=== PATIENT | female | born 1990 | race Caucasian/White ===

== ENCOUNTER 2016-09-25 11:46 | Emergency (ER) | payer OTHER | END 2016-09-25 16:18 | disposition home or self-care (01) | DX: F41.9 Anxiety disorder, unspecified (principal); F32.9 Major depressive disorder, single episode, unspecified ==

== ENCOUNTER 2017-02-01 23:05 | Emergency (ER) | payer OTHER ==
[2017-02-01] MEDS ORDERED: SODIUM CHLORIDE 0.9% 1,000 ML IV ONE (23:39)
[2017-02-02 00:07] LABS: BASOPHILS # (AUTO) 0.1 10^3/uL (0.0-0.1); BASOPHILS % (AUTO) 0.8 %; EOSINOPHILS # (AUTO) 0.1 10^3/uL (0.0-0.7); EOSINOPHILS % (AUTO) 0.7 %; HCT - HEMATOCRIT 35.6 % (37.0-47.0); HGB - HEMOGLOBIN 12.4 g/dL (12.0-16.0); LYMPHOCYTES # (AUTO) 2.9 10^3/uL (1.5-3.5); LYMPHOCYTES % (AUTO) 22.1 %; MEAN CORPUSCULAR HEMOGLOBIN 30.4 pg (27.0-31.0); MEAN CORPUSCULAR HGB CONC 34.8 g/dL (32.0-36.0); MEAN CORPUSCULAR VOLUME 87.1 fL (81.0-99.0); MONOCYTES # (AUTO) 0.9 10^3/uL (0.0-1.0); MONOCYTES % (AUTO) 6.9 %; NEUTROPHILS # (AUTO) 9.3 10^3/uL (1.5-6.6); NEUTROPHILS % (AUTO) 69.5 %; RED BLOOD COUNT 4.08 10^6/uL (4.20-5.40); UNCORRECTED WHITE BLOOD COUNT 13.4 x10^3/uL; WHITE BLOOD COUNT 13.4 x10^3/uL (4.8-10.8)
[2017-02-02 00:19] LABS: ALBUMIN/GLOBULIN RATIO 0.9 (1.0-2.2); BILIRUBIN,TOTAL 0.3 mg/dL (0.2-1.0); CALCIUM 9.1 mg/dL (8.5-10.3); CREATININE 0.8 mg/dL (0.4-1.0); POTASSIUM 3.7 mmol/L (3.5-5.0); TOTAL PROTEIN 6.9 g/dL (6.7-8.2)
[2017-02-02 00:23] LABS: BILIRUBIN,URINE NEGATIVE (NEGATIVE)
[2017-02-02 00:33] LABS: UA w/ MICROSCOPIC CHARGE YES
[2017-02-02 00:45] LABS: UR CULTURE IF IND NOT INDICATED
--- NOTE | 2017-02-02 01:56 | Ultrasound Preliminary Report ---
Exam: US OB 14+ Weeks IMPRESSION: 1. Single live intrauterine gestation measuring 14 weeks 5 days with MICHELE of 07/29/2017. 2. Low-lying placenta. Attention on follow-up examination recommended. No evidence of abruption or pr evia. 3. Detailed anatomic assessment is not performed at this time. Follow-up anatomic ultraso und examination recommended at 2022 weeks gestation. [facility] SITE ID: [id number]
--- NOTE | 2017-02-02 01:59 | Ultrasound Report ---
EXAM: OBSTETRIC ULTRASOUND EXAM DATE: 02/02/2017 12:42 AM. CLINICAL HISTORY: 15 week , vaginal bleeding. COMPARISON: None. TECHNIQUE: Real-time scanning performed with static images. Both color-flow and Doppler technology were utilized . FINDINGS: LMP: 10/25/2016. Estimated gestational age: 14 weeks 2 days. Estimated due date: 08/01/2017. Fetus: Single live intrauterine gestation. Presentation: Cephalic. Heart Rate: 159 BPM. Placenta: Posterior position. Low-lying placenta. No previa or abruption. Amniotic Fluid: Subjectively normal. Biometry: Bi-parietal diameter (BPD): 2.88 cm = 15 weeks 1 days. Head circumference (HC): 10.84 cm = 15 weeks 1 days. Abdominal circumference (AC): 7.92 cm = 14 weeks 2 days. Femur length (FL): 1.37 cm = 14 weeks 0 days. Dates: Composite gestational age (this exam): 14 Weeks 5 days (EDC 07/29/2017). Estimated weight: 94 gm, 35th percentile. Maternal Structures: Left ovary is normal measuring 3.4 x 3.2 x 2.9 cm. Small corpus luteum cyst measuring 19 mm. Normal b lood flow. Right ovary is normal measuring 3.0 x 1.9 x 1.8 cm. There is no significant free fluid. Cervix is long and closed measuring 3.5 cm. IMPRESSION: 1. Single live intrauterine gestation measuring 14 weeks 5 days with MICHELE of 07/29/2017. 2. Low-lying placenta. Attention on follow-up examination recommended. No evidence of abruption or pr evia. 3. Detailed anatomic assessment is not performed at this time. Follow-up anatomic ultraso und examination recommended at 2022 weeks gestation. [facility] Referring Provider Line: [phone] SITE ID: [id number]
[2017-02-02] MEDS ORDERED: RHO(D) IMMUNE GLOBULIN 300 MCG SYRINGE IM ONE (02:38)
--- NOTE | 2017-02-02 03:51 | ED Physician Documentation ---
PD HPI ABD PAIN - Stated complaint Stated Complaint: FEMALE /14 WKS PREG - Chief complaint Chief Complaint: Abd Pain - Additional information Additional information: This patient is a 26-year-old female who is 6 para 1 AB 4 currently at approximately 15 weeks by ultrasound. She is here with a complaint of small amount of vaginal bleeding. She has had spotting every days of her although her bleeding increased tonight. There is no history of recent intercourse. She has had a complicated with preeclampsia necessitatingInduction at 32 weeks. She denies any chest pain, shortness of breath, nausea, vomiting constipation diarrhea or lower urinary symptoms. She does have a history of gestational diabetes as well. Review of systems: For pertinent positive and negatives in the review of systems please see history of present illness. Otherwise all other systems have been reviewed and are negative. Dragon disclaimer: Parts of this medical record were created using voice recognition technology. Because of the inherent limitations of this system occasional same sounding word substitutions do occur and persist despite proofreading. Please read the document for context. 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 - Present Medications Home Medications: Ambulatory Orders Medication Instructions Recorded Confirmed Buspirone HCl 10 mg PO BID 09/25/16 02/01/17 - Allergies Allergies/Adverse Reactions: Allergies Allergy/AdvReac Type Severity Reaction Status Date / Time azithromycin Allergy Unknown Verified 09/25/16 11:57 - Social History Does the pt smoke?: No Smoking Status: Never smoker Does the pt drink ETOH?: No Does the pt have substance abuse?: No PD ED PE NORMAL - General General: Alert and oriented X 3, No acute distress - HEENT HEENT: Atraumatic, PERRL, EOMI - Neck Neck: No bony TTP - Cardiac Cardiac: RRR, No murmur, No gallop, No rub - Respiratory Respiratory: No respiratory distress, Clear bilaterally - Abdomen Abdomen: Normal bowel sounds, Soft, Non tender, Non distended - Female Female : Deferred - Back Back: No CVA TTP - Derm Derm: Normal color, Warm and dry - Extremities Extremities: No deformity, No tenderness to palpate, Normal ROM s pain - Neuro Neuro: Alert and oriented X 3 Results - Vitals Vitals: Vital Signs - 24 hr 02/01/17 02/02/17 23:14 02:50 Temperature 36.6 C Heart Rate 91 88 Respiratory 18 16 Rate Blood Pressure 136/73 H 123/56 L O2 Saturation 98 98 Oxygen O2 Source Room air - Labs Labs: Laboratory Tests 02/01/17 02/01/17 02/01/17 23:58 23:58 23:58 WBC 13.4 H RBC 4.08 L Hgb 12.4 Hct 35.6 L MCV 87.1 MCH 30.4 MCHC 34.8 RDW 13.0 Plt Count 266 MPV 9.0 Neut # 9.3 H Lymph # 2.9 Centre # 0.9 Eos # 0.1 Baso # 0.1 Absolute Nucleated RBC 0.01 Nucleated RBCs 0.0 Sodium 135 Potassium 3.7 Chloride 102 Carbon Dioxide 24 Anion Gap 9.0 BUN 11 Creatinine 0.8 Estimated GFR (MDRD) 87 L Glucose 93 Calcium 9.1 Total Bilirubin 0.3 AST 18 ALT 15 Alkaline Phosphatase 68 Total Protein 6.9 Albumin 3.2 Globulin 3.7 Albumin/Globulin Ratio 0.9 L Lipase 24 HCG, Quant 39988.00 Urine Color Urine Clarity Urine pH Ur Specific [place] Urine Protein Urine Glucose (UA) Urine Ketones Urine Occult Blood Urine Nitrite Urine Bilirubin Urine Urobilinogen Ur Leukocyte Esterase Urine RBC Urine WBC Ur Squamous Epith Cells Urine Bacteria Ur Microscopic Review Urine Culture Comments Blood Type 02/01/17 02/02/17 23:58 00:12 WBC RBC Hgb Hct MCV MCH MCHC RDW Plt Count MPV Neut # Lymph # Centre # Eos # Baso # Absolute Nucleated RBC Nucleated RBCs Sodium Potassium Chloride Carbon Dioxide Anion Gap BUN Creatinine Estimated GFR (MDRD) Glucose Calcium Total Bilirubin AST ALT Alkaline Phosphatase Total Protein Albumin Globulin Albumin/Globulin Ratio Lipase HCG, Quant Urine Color YELLOW Urine Clarity CLEAR Urine pH 6.0 Ur Specific [place] >=1.030 H Urine Protein 30 H Urine Glucose (UA) NEGATIVE Urine Ketones NEGATIVE Urine Occult Blood SMALL H Urine Nitrite NEGATIVE Urine Bilirubin NEGATIVE Urine Urobilinogen 0.2 (NORMAL) Ur Leukocyte Esterase NEGATIVE Urine RBC 6-10 H Urine WBC 4-5 Ur Squamous Epith Cells FEW Squamous Urine Bacteria None Seen Ur Microscopic Review INDICATED Urine Culture Comments NOT INDICATED Blood Type A NEGATIVE PD MEDICAL DECISION MAKING - ED course Complexity details: reviewed results, re-evaluated patient ED course: Patient is a 26-year-old female who presents with interval increase in her vaginal bleeding from her baseline spotting every day. She has no other complaints or concerns. This patient does have a history of preeclampsia in previous pregnancies as well as gestational diabetes. On examination she is a well-appearing female no apparent distress. Her abdomen is palpated is nontender at the fundal height is appropriate for dates. An IV line was started she is given 1 L of normal saline. Blood work shows white count of 13, 000 however there is no evidence of infection clinically or by urinalysis. Patient's electrolytes are normal here and is maximally concentrated and shows proteinuria however there is no spilling any glucose. Ultrasound demonstrates a single live intrauterine that is doing well. The placenta is noted to be a little low-lying. The patient's Rh was negative. She is given RhoGam. Patient is doing well clinically. I discussed the results of her testing with her. At this point in time she will be discharged home with [place] [place]position: To home Clinical impression: 1. Second trimester bleeding-mild 2. Rh- given RhoGam 3. History of preeclampsia in the past as well as gestational diabetes currently stable Departure - Departure Disposition: 01 Home, Self Care Clinical Impression: Threatened in second trimester Condition: Good Instructions: ED Miscarriage Poss Follow-Up: your, physician [Other]
[2017-02-02 04:06] VITALS: BP 124/60
== END 2017-02-02 04:02 | disposition home or self-care (01) ==
LOC: ED 23:05
DX: O20.0 Threatened abortion (principal); Z3A.14 14 weeks gestation of pregnancy; Z86.32 Personal history of gestational diabetes
CPT/HCPCS: 36415; 76805; 80053; 81001; 81003; 83690; 84702; 85025; 86900; 86901; 87086; 96372; 99283; 99284

== ENCOUNTER 2017-10-07 17:23 | Emergency (ER) | payer OTHER ==
[2017-10-07] MEDS ORDERED: ONDANSETRON ODT 4 MG TABLET TL STA (17:49)
[2017-10-07] MEDS ORDERED: HYDROcod/ACETAM 5/325 MG TABLET PO STA (17:49)
--- NOTE | 2017-10-07 17:53 | ED Physician Documentation ---
PD HPI ABD PAIN - Stated complaint Stated Complaint: FEMALE - Chief complaint Chief Complaint: Abd Pain - History obtained from History obtained from: Patient - History of Present Illness Timing - onset: Other (27-year-old woman who is 4 months status post for preeclampsia. For the last 2 months she has had right flank pain pretty much constantly but worse over the last 2 days. It is associated with urinary frequency and some dysuria as well. She is not breast-feeding. She also describes nausea and diarrhea for that whole time course. She does have a history of IBS. She also notes ringworm on the left antecubital fossa. She saw her doctor for this and they did lab work but she does not know the results and it sounds like there was some missed appointments or at least some problems getting to her appointments or some canceled appointments.) Review of Systems Constitutional: denies: Fever, Chills Cardiac: denies: Chest pain / pressure, Palpitations Respiratory: denies: Dyspnea, Cough GI: reports: Nausea, Diarrhea. 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 10/07/17 Dicyclomine HCl 20 mg PO QID PRN #20 tablet 10/07/17 HYDROcod/ACETAM 5/325 [[place] 5/325] 1 - 2 ea PO Q6H PRN #10 tablet 10/07/17 Ondansetron HCl [Zofran] 4 mg PO Q6H PRN #10 tablet 10/07/17 - Allergies Allergies/Adverse Reactions: Allergies Allergy/AdvReac Type Severity Reaction Status Date / Time azithromycin Allergy Unknown Verified 10/07/17 17:33 - Social History Does the pt smoke?: No Smoking Status: Never smoker Does the pt drink ETOH?: No Does the pt have substance abuse?: No PD ED PE NORMAL - Vitals Vital signs reviewed: Yes - General General: Alert and oriented X 3, No acute distress - HEENT HEENT: PERRL, EOMI - Neck Neck: Supple, no meningeal sign, No bony TTP - Abdomen Abdomen: Normal bowel sounds, Soft, Other (Mild bilateral lower quadrant tenderness and some right flank tenderness, no surgical signs.) - Derm Derm: Other (There is a very small area of ringworm in the left antecubital fossa) - Neuro Neuro: Alert and oriented X 3, Normal speech Results - Vitals Vitals: Vital Signs - 24 hr 10/07/17 10/07/17 17:26 19:30 Temperature 36.0 C L Heart Rate 85 78 Respiratory 18 17 Rate Blood Pressure 143/92 H 145/86 H O2 Saturation 99 98 Oxygen O2 Source Room air - Labs Labs: Laboratory Tests 10/07/17 10/07/17 10/07/17 18:00 18:01 18:01 WBC 12.2 H RBC 4.71 Hgb 13.5 Hct 40.9 MCV 86.8 MCH 28.7 MCHC 33.1 RDW 14.1 Plt Count 322 MPV 9.0 Neut # 8.2 H Lymph # 3.0 [place] # 0.7 Eos # 0.1 Baso # 0.2 H Absolute Nucleated RBC 0.00 Nucleated RBC % 0.0 Sodium 135 Potassium 3.6 Chloride 103 Carbon Dioxide 22 Anion Gap 10.0 BUN 11 Creatinine 1.0 Estimated GFR (MDRD) 67 L Glucose 100 Calcium 9.0 Total Bilirubin 0.3 AST 29 ALT 31 Alkaline Phosphatase 69 Total Protein 7.9 Albumin 4.0 Globulin 3.9 Albumin/Globulin Ratio 1.0 Lipase 19 L Urine Color YELLOW Urine Clarity HAZY Urine pH 5.5 Ur Specific [place] >=1.030 H Urine Protein 30 H Urine Glucose (UA) NEGATIVE Urine Ketones NEGATIVE Urine Occult Blood NEGATIVE Urine Nitrite NEGATIVE Urine Bilirubin NEGATIVE Urine Urobilinogen 0.2 (NORMAL) Ur Leukocyte Esterase NEGATIVE Urine RBC None Seen Urine WBC 4-5 Ur Squamous Epith Cells MANY Squamous H Urine Bacteria Moderate H Ur Microscopic Review INDICATED Urine Culture Comments NOT INDICATED Urine HCG, Qual NEGATIVE - Rads (name of study) Pelvic sono Radiology: EMP read contemporaneously (normal) PD MEDICAL DECISION MAKING - ED course ED course: 27-year-old woman with subacute abdominal pains, pelvic pains, nausea and diarrhea. Seems most consistent with IBS which she has been diagnosed with before. She had a sensation of abdominal swelling so pelvic ultrasound was done and negative, also negative for ascites. Other lab work was notable for a contaminated urine but without overt signs of UTI. Departure - Departure Disposition: 01 Home, Self Care Clinical Impression: Tinea corporis Abdominal pain Qualifiers: Abdominal location: lower abdomen, unspecified Qualified Code(s): R10.30 - Lower abdominal pain, unspecified Condition: Good Record reviewed to determine appropriate education?: Yes Instructions: Abdominal Pain Prescriptions: Clotrimazole [Clotrimazole AF] 1 gm TP TID 28 Days cream..g. Dicyclomine HCl 20 mg PO QID PRN #20 tablet PRN Reason: Abdominal Cramps HYDROcod/ACETAM 5/325 [[place] 5/325] 1 - 2 ea PO Q6H PRN #10 tablet PRN Reason: Pain Ondansetron HCl [Zofran] 4 mg PO Q6H PRN #10 tablet PRN Reason: Nausea / Vomiting Comments: Call your doctor to arrange a follow-up appointment, make the next available appointment. In the interim, return anytime if worse or if new symptoms develop. Your blood pressure was elevated today on check into the emergency department. This does not mean that you have hypertension, it is a common phenomenon to come to the emergency department and have elevated blood pressure. I recommend that you see your primary care physician within the week to have it rechecked when you are feeling better. Do not drink or drive while taking narcotic pain medication. Note that many narcotic pain relievers also contain Tylenol/acetaminophen. Please ensure that your total dose of acetaminophen from all sources does not exceed 3 g (3000 mg) per day. You may get constipated while on this medication. Take a stool softener such as Colace twice a day while you are on it. Also add an [id number] laxative such as senna or MiraLAX on any day that you do not have a bowel movement. If you received a narcotic pain medication or sedative while in the emergency department, do not drive for the next 24 hours.
[2017-10-07 18:08] LABS: BASOPHILS # (AUTO) 0.2 10^3/uL (0.0-0.1); BASOPHILS % (AUTO) 1.3 %; EOSINOPHILS # (AUTO) 0.1 10^3/uL (0.0-0.7); HGB - HEMOGLOBIN 13.5 g/dL (12.0-16.0); LYMPHOCYTES % (AUTO) 24.4 %; MEAN CORPUSCULAR HEMOGLOBIN 28.7 pg (27.0-31.0); MEAN CORPUSCULAR HGB CONC 33.1 g/dL (32.0-36.0); MEAN CORPUSCULAR VOLUME 86.8 fL (81.0-99.0); MONOCYTES # (AUTO) 0.7 10^3/uL (0.0-1.0); NEUTROPHILS # (AUTO) 8.2 10^3/uL (1.5-6.6); NEUTROPHILS % (AUTO) 67.3 %; PLT - PLATELET COUNT 322 10^3/uL (130-450); RED BLOOD COUNT 4.71 10^6/uL (4.20-5.40); RED CELL DISTRIBUTION WIDTH 14.1 % (12.0-15.0); WHITE BLOOD COUNT 12.2 x10^3/uL (4.8-10.8)
[2017-10-07 18:18] LABS: BILIRUBIN,TOTAL 0.3 mg/dL (0.2-1.0); TOTAL PROTEIN 7.9 g/dL (6.7-8.2)
[2017-10-07 18:37] LABS: BILIRUBIN,URINE NEGATIVE (NEGATIVE); GLUCOSE, URINE (UA) NEGATIVE (NEGATIVE); KETONES,URINE (UA) NEGATIVE (NEGATIVE); LEUKOCYTE ESTERASE, URINE NEGATIVE (NEGATIVE); NITRITE,URINE NEGATIVE (NEGATIVE); OCCULT BLOOD,URINE NEGATIVE (NEGATIVE); PH,URINE 5.5 PH (5.0-7.5); PROTEIN,URINE 30 mg/dL (NEGATIVE); UROBILINOGEN,URINE 0.2 (NORMAL) E.U./dL (NORMAL)
[2017-10-07 18:40] LABS: CLARITY,URINE HAZY (CLEAR); HCG UR QUAL NEGATIVE
[2017-10-07 18:50] LABS: BACTERIA,URINE Moderate /HPF (None Seen); RBC,URINE None Seen /HPF (0-5); SQUAMOUS EPITHELIAL CELL,UR MANY Squamous (<= Few)
--- NOTE | 2017-10-07 19:34 | Ultrasound Report ---
EXAM: PELVIC ULTRASOUND EXAM DATE: 10/07/2017 07:19 PM. CLINICAL HISTORY: Pelvic pain. COMPARISON: None. TECHNIQUE: Realtime transabdominal pelvic scan performed to identify the uterus and adnexa and as an overview of other pelvic structures, followed by transvaginal scan to provide greater detail of the u terus and adnexa, with static image documentation. FINDINGS: Uterus: A 0.9 x 4.7 x 6.3 cm, volume 138 cc. Anteverted position. Somewhat heterogeneous echotexture. Masses: None. Endometrium: 14 mm. Normal. Cervix: Unremarkable. Right Ovary: 3.2 x 2.3 x 2.6 cm, volume 10 cc. Normal echotexture and blood flow. Left Ovary: 3.2 x 2.3 x 2.2 cm, volume 8 cc. Normal echotexture and blood flow. Free Fluid: Small volume. Other: None. IMPRESSION: Negative pelvic ultrasound. [facility] Referring Provider Line: [phone] SITE ID: [id number]
[2017-10-07 19:58] VITALS: BP 149/99
== END 2017-10-07 19:57 | disposition home or self-care (01) ==
LOC: ED 17:23
DX: R10.30 Lower abdominal pain, unspecified (principal); B35.4 Tinea corporis; K58.9 Irritable bowel syndrome, unspecified; R03.0 Elevated blood-pressure reading, without diagnosis of hypertension; R11.0 Nausea
CPT/HCPCS: 36415; 76830; 76856; 80053; 81001; 81025; 83690; 85025; 93975; 99283; A9270; Q0162; 81003; 87086

== ENCOUNTER 2018-05-02 19:15 | Emergency (ER) | payer OTHER ==
--- NOTE | 2018-05-02 20:36 | ED Physician Documentation ---
PD HPI NVD - Stated complaint Stated Complaint: N/V - Chief complaint Chief Complaint: Abd Pain - History obtained from History obtained from: Patient - History of Present Illness Timing - onset: Yesterday Timing - details: Gradual onset, Constant, Waxing and waning Pain level now: 7 Associated symptoms: Abdominal pain. No: Fever Improved by: Laying still Worsened by: Moving Similar symptoms before: Has not had sx before Recently seen: Not recently seen - Additonal information Additional information: c/o nausea, vomiting since yesterday, developed diarrhea this morning. Also has abdominal pain, waxing and waning with constant baseline, diffuse. Patient was seen by PMD 2 days ago for recurrent pain across lower abdomen/pelvis for which she was prescribed Vicodin; patient says she has not been able to keep the vicodin down due to n/v, but can't even keep down any PO including sips of liquids. She says the pelvic pain is recurrent and this is why she is scheduled to have hysterectomy in 2 weeks. 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 10/07/17 Dicyclomine HCl 20 mg PO QID PRN #20 tablet 10/07/17 HYDROcod/ACETAM 5/325 [[place] 5/325] 1 - 2 ea PO Q6H PRN #10 tablet 10/07/17 Ondansetron HCl [Zofran] 4 mg PO Q6H PRN #10 tablet 10/07/17 Promethazine [Phenergan] 25 - 50 mg PO Q6H PRN #10 tab 05/02/18 oxyCODONE [Roxicodone] 5 - 10 mg PO Q6H PRN #14 tablet 05/02/18 - Allergies Allergies/Adverse Reactions: Allergies Allergy/AdvReac Type Severity Reaction Status Date / Time azithromycin Allergy Unknown Verified 05/02/18 19:23 - Social History Does the pt smoke?: No Smoking Status: Never smoker Does the pt drink ETOH?: No Does the pt have substance abuse?: No Substance Use and Type: Marijuana - Immunizations Immunizations are current?: Yes - POLST Patient has POLST: No PD ED PE NORMAL - Vitals Vital signs reviewed: Yes - General General: Alert and oriented X 3, Well developed/nourished, Other (appears uncomfortable) - HEENT HEENT: Other (tacky/pasty mucous membranes) - Neck Neck: Supple, no meningeal sign - Cardiac Cardiac: RRR, No murmur - Respiratory Respiratory: No respiratory distress, Clear bilaterally - Abdomen Abdomen: Soft, Non distended, Other (tender to palpation RLQ > LUQ with sparing of LLQ and RUQ) - Back Back: No CVA TTP - Derm Derm: Normal color, Warm and dry - Extremities Extremities: No edema Results - Vitals Vitals: Vital Signs - 24 hr 05/02/18 19:20 Temperature 36.6 C Heart Rate 93 Respiratory 17 Rate Blood Pressure 134/101 H O2 Saturation 97 Oxygen O2 Source Room air - Rads (name of study) CT A/P Radiology: Prelim report reviewed, See rad report PD MEDICAL DECISION MAKING - ED course Complexity details: reviewed results, re-evaluated patient, considered differential, d/w patient Departure - Departure Disposition: 01 Home, Self Care Clinical Impression: Vomiting Condition: Good Instructions: ED Abdominal Pain Unkn Cause, ED Nausea Vomiting Prescriptions: oxyCODONE [Roxicodone] 5 - 10 mg PO Q6H PRN #14 tablet PRN Reason: Pain Promethazine [Phenergan] 25 - 50 mg PO Q6H PRN #10 tab PRN Reason: Nausea / Vomiting Discharge Date/Time: 05/03/18 00:03
[2018-05-02] MEDS ORDERED: ONDANSETRON 4 MG/2 ML VIAL IVP STA ×2 (20:47→22:39)
[2018-05-02] MEDS ORDERED: SODIUM CHLORIDE 0.9% 1,000 ML IV STA ×2 (20:47→22:39)
[2018-05-02] MEDS ORDERED: KETOROLAC 60 MG/2 ML VIAL IVP STA (20:47)
[2018-05-02 21:11] LABS: GLUCOSE, URINE (UA) NEGATIVE (NEGATIVE); KETONES,URINE (UA) >=80 mg/dL (NEGATIVE); LEUKOCYTE ESTERASE, URINE NEGATIVE (NEGATIVE); NITRITE,URINE NEGATIVE (NEGATIVE); OCCULT BLOOD,URINE MODERATE (NEGATIVE); PROTEIN,URINE >=300 mg/dL (NEGATIVE); UROBILINOGEN,URINE 0.2 (NORMAL) E.U./dL (NORMAL)
[2018-05-02 21:15] LABS: BILIRUBIN,URINE NEGATIVE (NEGATIVE); CLARITY,URINE HAZY (CLEAR); ICTOTEST,URINE NEGATIVE
[2018-05-02 21:19] LABS: BASOPHILS # (AUTO) 0.1 10^3/uL (0.0-0.1); BASOPHILS % (AUTO) 0.8 %; EOSINOPHILS % (AUTO) 0.1 %; LYMPHOCYTES # (AUTO) 1.5 10^3/uL (1.5-3.5); MEAN CORPUSCULAR HEMOGLOBIN 29.5 pg (27.0-31.0); MEAN CORPUSCULAR HGB CONC 34.4 g/dL (32.0-36.0); MEAN CORPUSCULAR VOLUME 85.8 fL (81.0-99.0); MEAN PLATELET VOLUME 9.1 fL (7.9-10.8); MONOCYTES # (AUTO) 0.8 10^3/uL (0.0-1.0); MONOCYTES % (AUTO) 5.2 %; NEUTROPHILS # (AUTO) 13.8 10^3/uL (1.5-6.6); NEUTROPHILS % (AUTO) 84.9 %; PLT - PLATELET COUNT 367 10^3/uL (130-450); RED CELL DISTRIBUTION WIDTH 13.5 % (12.0-15.0); WHITE BLOOD COUNT 16.3 x10^3/uL (4.8-10.8)
[2018-05-02 21:25] LABS: BACTERIA,URINE Rare /HPF (None Seen); SQUAMOUS EPITHELIAL CELL,UR MANY Squamous (<= Few)
[2018-05-02 21:25] LABS: ALBUMIN 4.6 g/dL (3.2-5.5); ALBUMIN/GLOBULIN RATIO 1.1 (1.0-2.2); BILIRUBIN,TOTAL 0.9 mg/dL (0.2-1.0); CALCIUM 9.6 mg/dL (8.5-10.3); CREATININE 0.9 mg/dL (0.4-1.0); TOTAL PROTEIN 8.8 g/dL (6.7-8.2)
[2018-05-02 21:55] LABS: HCG UR QUAL NEGATIVE
[2018-05-02] MEDS ORDERED: IOPAMIDOL-300 100 ML VIAL ONE (22:02)
[2018-05-02] MEDS ORDERED: IOPAMIDOL-300 100 ML VIAL IVP ONE (22:18)
--- NOTE | 2018-05-02 22:47 | CT Report ---
Reason: RLQ tenderness Procedure Date: 05/02/2018 Accession Number: [id number] / [id number] Procedure: CT - Abdomen/Pelvis W/ CPT Code: FULL RESULT: EXAM: CT ABDOMEN AND PELVIS EXAM DATE: 05/02/2018 10:32 PM. CLINICAL HISTORY: RLQ tenderness. COMPARISONS: None. TECHNIQUE: Routine helical CT imaging was performed through the abdomen and pelvis. IV contrast: ISOVUE 300 100mL. Enteric contrast: No. Reconstructions: Coronal and sagittal. In accordance with CT protocol optimization, one or more of the following dose reduction techniques were utilized for this exam: automated exposure control, adjustment of mA and/or KV based on patient size, or use of iterative reconstructive technique. FINDINGS: Lung Bases: Unremarkable. Liver: Small focus of fatty infiltration adjacent to the falciform ligament. No intrahepatic biliary dilatation. Gallbladder/Bile Ducts: Changes of cholecystectomy. The common bile duct is not dilated. Spleen: Normal. Pancreas: Normal. Adrenal Glands: Normal. Kidneys: Lobulated cortex on the kidneys, suggestive of previous scarring. No hydronephrosis or nephrolithiasis. Peritoneal Cavity/Bowel: Normal. No free fluid, free air or adenopathy. No masses or acute inflammatory process. The appendix is well visualized and normal. Pelvic Organs: Normal. The bladder and visualized pelvic organs are within normal limits. Vasculature: No aneurysms or other significant abnormality. Bones: No significant abnormality. Other: None. IMPRESSION: No evident etiology for patient's pain. Lobular cortex to the kidneys, suggestive of previous scarring. No nephrolithiasis or hydronephrosis. Normal appendix. [facility]
[2018-05-02] MEDS ORDERED: PROMETHAZINE 25 MG TABLET PO STA (23:31)
[2018-05-02 23:57] VITALS: BP 133/94
== END 2018-05-03 00:03 | disposition home or self-care (01) ==
LOC: EDUNIT# → ED 19:15
DX: R11.10 Vomiting, unspecified (principal); R10.9 Unspecified abdominal pain
CPT/HCPCS: 36415; 74177; 80053; 81001; 81025; 83690; 85025; 96374; 96375; 96376; 99283; 99284; Q0169; Q9967; 81003; 87086

== ENCOUNTER 2018-05-12 11:01 | Outpatient (CLI) | payer OTHER ==
[2018-05-12 11:43] LABS: BASOPHILS # (AUTO) 0.1 10^3/uL (0.0-0.1); BASOPHILS % (AUTO) 1.2 %; EOSINOPHILS # (AUTO) 0.1 10^3/uL (0.0-0.7); EOSINOPHILS % (AUTO) 1.5 %; HGB - HEMOGLOBIN 14.6 g/dL (12.0-16.0); LYMPHOCYTES # (AUTO) 2.5 10^3/uL (1.5-3.5); LYMPHOCYTES % (AUTO) 32.4 %; MEAN CORPUSCULAR HEMOGLOBIN 30.1 pg (27.0-31.0); MEAN CORPUSCULAR HGB CONC 34.8 g/dL (32.0-36.0); MEAN CORPUSCULAR VOLUME 86.6 fL (81.0-99.0); MEAN PLATELET VOLUME 9.1 fL (7.9-10.8); MONOCYTES # (AUTO) 0.5 10^3/uL (0.0-1.0); MONOCYTES % (AUTO) 7.2 %; NEUTROPHILS # (AUTO) 4.4 10^3/uL (1.5-6.6); NEUTROPHILS % (AUTO) 57.7 %; PLT - PLATELET COUNT 297 10^3/uL (130-450); RED BLOOD COUNT 4.86 10^6/uL (4.20-5.40); RED CELL DISTRIBUTION WIDTH 13.5 % (12.0-15.0); WHITE BLOOD COUNT 7.6 x10^3/uL (4.8-10.8)
[2018-05-12 11:56] LABS: CALCIUM 9.1 mg/dL (8.5-10.3)
[2018-05-12 13:22] LABS: BILIRUBIN,URINE NEGATIVE (NEGATIVE); GLUCOSE, URINE (UA) NEGATIVE (NEGATIVE); KETONES,URINE (UA) NEGATIVE (NEGATIVE); LEUKOCYTE ESTERASE, URINE NEGATIVE (NEGATIVE); NITRITE,URINE NEGATIVE (NEGATIVE); OCCULT BLOOD,URINE NEGATIVE (NEGATIVE); PROTEIN,URINE 30 mg/dL (NEGATIVE); UROBILINOGEN,URINE 0.2 (NORMAL) E.U./dL (NORMAL)
[2018-05-12 13:27] LABS: CLARITY,URINE CLEAR (CLEAR)
== END 2018-05-12 11:02 | disposition home or self-care (01) ==
LOC: LAB 11:01
PROVIDERS: ATTEND Obstetrics & Gynecology
DX: Z01.812 Encounter for preprocedural laboratory examination (principal); N92.0 Excessive and frequent menstruation with regular cycle; N94.5 Secondary dysmenorrhea
CPT/HCPCS: 36415; 80048; 81003; 85025; 86850; 86900; 86901

== ENCOUNTER 2018-05-15 11:31 | Inpatient (IN) | payer OTHER ==
--- NOTE | 2018-05-15 11:09 | ANESTHESIA ---
Pre-Anesthesia VS, & Labs <Blair Cowan - Last Filed: 05/15/18 11:06> - NPO >8 hours - Is Patient ?: No <Eden Figueroa - Last Filed: 05/15/18 13:29> - Diagnosis Menorrhagia (Blair Cowan) Menorrhagia (Eden Figueroa) - Procedure [place]ian assisted vaginal hysterectomy (Blair Cowan) [place]ian assisted vaginal hysterectomy (Eden Figueroa) Vital Signs: Temp Pulse Resp BP Pulse Ox 36.3 C L 96 16 140/89 H 99 05/15/18 11:49 05/15/18 11:49 05/15/18 11:49 05/15/18 11:49 05/15/18 11:49 Height 5 ft 2 in Weight (kg) 109.32 kg Body Mass Index 45.1 Home Medications and Allergies <Blair Cowan - Last Filed: 05/15/18 11:06> <Eden Figueroa - Last Filed: 05/15/18 13:29> Home Medications: Ambulatory Orders Buspirone HCl 20 mg PO BID 05/15/18 Buspirone HCl 20 mg PO BID 05/15/18 Allergies/Adverse Reactions: Allergies Allergy/AdvReac Type Severity Reaction Status Date / Time azithromycin Allergy Unknown Verified 05/08/18 14:40 Anes History & Medical History - Medical History Cardiovascular: reports: None Pulmonary: reports: None Gastrointestinal: reports: None Urinary: reports: None Musculoskeletal: reports: Fibromyalgia Endocrine/Autoimmune: reports: None Skin: reports: None Smoking Status: Never smoker - Surgical History General: Cholecystectomy Gynecologic: Dilation and currettage <Blair Cowan - Last Filed: 05/15/18 11:06> - Anesthetic History Anesthesia Complications: reports: Post-Operative Nausea/Vomiting - Medical History Cardiovascular: reports: None Pulmonary: reports: None Gastrointestinal: reports: None Urinary: reports: None Smoking Status: Never smoker - Surgical History Gynecologic: section <Eden Figueroa - Last Filed: 05/15/18 13:29> Exam General: Alert Dental: WNL Mouth Openin Fingerbreadth Mallampati classification: II Thyromental Distance: greater than 6 cm Respiratory: Lungs clear Cardiovascular: Regular rate, Normal S1, Normal S2 <Aube,Eden E - Last Filed: 05/15/18 13:29> Plan Anesthesia Type: General Consent for Procedure(s) Verified and Reviewed: Yes Code Status: Attempt Resuscitation ASA classification: 2-Mild systemic disease Is this case an emergency?: No <Eden Figueroa E - Last Filed: 05/15/18 13:29>
[~2018-05-15 11:31] MED LIST: CYCLOPENTOLATE 1% OPHTH DROPS 2 ML ONE; KETOROLAC 0.45% OPHTH DROPS ONE; PHENYLEPHRINE 2.5% OPHTH 2 ML DROPS ONE; PROPARACAINE 0.5% OPHTH DROPS 15 ML ONE; ceFAZolin 2 GM/50 ML 2 GM/50 ML BAG IV ONE
[2018-05-15] MEDS ORDERED: LACTATED RINGERS 1,000 ML IV ONE ×2 (11:37→16:36)
[2018-05-15 11:50] LABS: HCG UR QUAL NEGATIVE
[2018-05-15] MEDS ORDERED: SCOPOLAMINE PATCH TOP ONE (12:33)
[2018-05-15] MEDS ORDERED: BUPIVACAINE 0.25%-EPI 1:200000 PF 30 ML VIAL ONE (13:07)
[2018-05-15] MEDS ORDERED: LIDOCAINE 1% 50 ML MDV ONE (13:33)
[2018-05-15] MEDS ORDERED: NEOSTIGMINE 1 MG/1 ML 10 ML MDV IVP ONE (14:00)
[2018-05-15] MEDS ORDERED: PROPOFOL 200 MG/20 ML VIAL IVP ONE (14:00)
[2018-05-15] MEDS ORDERED: MIDAZOLAM 2 MG/2 ML VIAL IVP ONE (14:00)
[2018-05-15] MEDS ORDERED: ROCURONIUM 50 MG/5 ML VIAL IVP ONE (14:00)
[2018-05-15] MEDS ORDERED: LIDOCAINE-MPF 2% 5 ML VIAL IM ONE (14:00)
[2018-05-15] MEDS ORDERED: DEXAMETHASONE 4 MG/ML VIAL IVP ONE (14:00)
[2018-05-15] MEDS ORDERED: METOPROLOL 5 MG/5 ML VIAL IVP ONE (14:00)
[2018-05-15] MEDS ORDERED: diphenhydrAMINE INJ 50 MG/ML VIAL IVP ONE (14:00)
[2018-05-15] MEDS ORDERED: ONDANSETRON 4 MG/2 ML VIAL IVP ONE (14:00)
[2018-05-15] MEDS ORDERED: HYDROmorphone 1 MG/ML CARPUJECT IVP ONE (14:00)
[2018-05-15] MEDS ORDERED: ACETAMINOPHEN 1,000 MG/100 ML 100 ML IV ONE (14:00)
[2018-05-15] MEDS ORDERED: fentaNYL 100 MCG/2 ML VIAL IVP ONE (14:00)
[2018-05-15] MEDS ORDERED: GLYCOPYRROLATE 1 MG/5 ML VIAL IVP ONE (14:00)
[2018-05-15] MEDS ORDERED: BUPIVACAINE 0.25%-EPI 1:200000 PF 10 ML VIAL SUBQ ONE ×3 (14:33)
[2018-05-15] MEDS ORDERED: LIDOCAINE 1% 50 ML MDV SUBQ ONE ×3 (14:33)
[2018-05-15] MEDS ORDERED: KETOROLAC 30 MG/ML VIAL ONE (16:50)
[2018-05-15] MEDS ORDERED: ONDANSETRON 4 MG/2 ML VIAL IVP PRN (17:03)
--- NOTE | 2018-05-15 17:12 | OPERATIVE REPORT ---
Operative Report - General Admit Date: 05/15/18 Planned Procedure: LAVH, bilateral salpingectomies Pre-Op Diagnosis: Menorrhagia, Dysmenorrhea Procedure Performed: LAVH, bilateral salpingectomies, lysis of adhesions Post Op Diagnosis: SIMON, pelvic adhesions - Procedure Note Primary Surgeon: Dr. Debo Hurtado Secondary Surgeon: Dr. Syd Morel Anesthesia Provider: OSMANY Figueroa Anesthesia Technique: General ET tube, Local Pathology: Uterus, cervix, and bilateral fallopian tubes IV Fluids (mL): 1,200 Estimated Blood Loss (mL): 330 Urine Output (mL): 300 Complications: None - Other Other Information/Narrative: Indication: The patient is a 28 yo A3 here for hysterectomy for definitive mgmt of bothersome menorrhagia and dysmenorrhea. She has also had nearly constant pelvic pain for the past 5 years as well as dyspareunia. The couple has finished their child-bearing, and she was initially desiring tubal ligation. However, upon further questioning, she reported bother with her menses as well as dysmenorrhea. She has not found relief with hormonal control or periodic NSAIDs. She has been requiring Vicodin prn for severe dysmenorrhea. She also has severe nausea and diarrhea related to cycles at times. Menses are regular, every 30 days, lasting 3-4 days with dysmenorrhea rated at 7-8/10 intensity. She has to change a large pad every 2-3 hrs and occasionally soaks through. Contraception hx: currently using condoms. She has tried Implanon, Nuvaring, Ortho Evra, and Mirena (which fell out after 2 months). The alternatives for mgmt of her symptoms were discussed, and the patient desired to proceed with a hysterectomy. Risks, benefits, limitations, alternatives, and expectations or surgery were discussed, and the consent was reviewed and signed prior to the date of surgery. Findings: Exam under anesthesia: Uterus anteverted, 7 wks, with no adnexal masses palpable. Surgery: Omental adhesions to anterior peritoneum just below umbilicus (left in situ). Thin adhesions from uterine serosa to anterior peritoneum (ligated). Thin bladder adhesions. 2 cm simple-appearing right ovarian cyst. Uterus noted to have multiple cystic lesions over posterior aspect, but no obvious endometriosis lesions noted within the pelvis. Tubes normal-appearing bilaterally. Liver edge normal. Ureters visualized and noted to peristalse after the hyst and appeared clear of the surgical dissection site. Procedure: The patient was taken to the operating room, where general endotracheal anesthesia was administered without difficulty. She was then positioned with her lower extremities in yellow-fin stirrups. Exam under anesthesia was then performed with the findings as noted above. Perineum, vagina, and abdomen were then prepped and draped in sterile fashion, and a armendariz catheter was placed. Time out was then performed. Attention was first turned to placement of a uterine manipulator. A sterile bivalve speculum was inserted, and the cervix grasped with a single-toothed tenaculum. The cervix was then dilated until a HUMI uterine manipulator could be placed and balloon inflated. Tenaculum and speculum then removed. Attention was then turned to the laparoscopy. 1% lidocaine was injected infraumbilically, then a 7-mm vertical skin incision made. A Verrees needle was then inserted through the anterior layers of the abdominal wall with saline drop test suggesting intraperitoneal placement. Carbon dioxide gas insufflation was then performed with appropriate opening pressures noted. Once 2 L of gas was instilled, a 0-degree, 5 mm laparoscope was inserted into a 5 mm trocar and passed through the anterior layers of the abdominal wall using Optiview technique. The abdomen was visualized, then 2 additional ports placed at the right and left lower quadrants, first instilling local anesthetic then placing 5 mm ports. The patient was placed into Trendelenberg and bowel swept out of the cul-de-sac. The right distal fallopian tube was grasped and pulled anteriorly while the right tubo-ovarian ligament was cross-clamped, cauterized, and cut using the PlasmaKinetic. This incision was then extended medially across the mesosalpinx until the cornual region was reached. The right round ligament was then cross- clamped, cauterized, and cut, then the anterior leaf of the broad ligament undermined, cauterized, and cut starting the bladder flap dissection on the right. The right utero-ovarian pedicle was then cross-clamped, cauterized, and cut, then this incision extended into the peritoneum inferiorly. The right uterine vessels were then skeletonized, cross-clamped, cauterized, and cut. Attention was then turned to the left side, where the dissection was completed in similar fashion. The bladder flap was extended across the midline, completely dissecting the bladder inferiorly. Any bleeding was controlled with cautery. The trocars were left in situ as well as the majority of the gas. Attention was then turned to the vaginal portion of the case. The uterine manipulator was removed and a sterile weight speculum placed. The cervix was grasped with a double-toothed tenaculum, then 0.25% marcaine with epi was injected circumferentially for hemostasis. A circumferential incision was then made with cauterization. The posterior cul-de-sac was then entered sharply, and an Auvard speculum placed. The left, then right, uterosacral ligament was cross-clamped, cut, and suture-ligated with 0 vicryl. These were tagged for later identification. The anterior cul-de-sac was then entered bluntly using a moist sponge and the changeover operator's finger. Two additional pedicles were secured on each side, then the uterus, cervix, and tubes removed vaginally. Some bleeding inferior to the left uterosacral ligament was controlled with figure of eight sutures of 0 vicryl. The peritoneum was then closed with a purse-string suture of 0 vicryl, then the vaginal cuff was irrigated with sterile saline. The vaginal mucosa was then closed with serial figure of eight sutures of 0 vicryl. A sponge stick was placed, and attention returned to laparoscopy to visualize the cuff for bleeding. Gas was instilled again, and the dissection noted to have some bleeding at the left peritoneal edge just above the cuff. This was cauterized then hemostatic. Copious irrigation was performed. Ureters were visualized and peristalsed. At this point the procedure was deemed complete. The gas was allowed to escape, and the trocars removed. The incisions were then closed with 4-0 monocryl in a subcuticular fashion followed by Dermabond. The sponge stick was removed from the vagina. The patient was then awakened, extubated, and transferred to the PACU in stable condition. There were no complications. Sponge, lap, and needle count were correct x 3.
[2018-05-15] MEDS: fentaNYL 100 MCG/2 ML VIAL ONE ×2 (17:14→17:20)
[2018-05-15] MEDS: KETOROLAC 30 MG/ML VIAL IVP SCH (17:56)
[2018-05-15] MEDS ORDERED: SODIUM CHLORIDE FLUSH 0.9% 10 ML SYRINGE ONE ×2 (17:59→20:43)
[2018-05-15] MEDS: MORPHINE 2 MG/ML CARPUJECT IVP PRN ×2 (17:59→20:45)
[2018-05-15] MEDS: oxyCODONE 5 MG TABLET PO PRN ×2 (18:50→23:09)
[2018-05-15] MEDS: LACTATED RINGERS 1,000 ML IV SCH (20:46)
[2018-05-15] MEDS: DOCUSATE SODIUM 100 MG CAPSULE PO SCH (20:46)
[2018-05-15] MEDS: SIMETHICONE CHEW 80 MG TABLET PO SCH (22:21)
[2018-05-16] MEDS: KETOROLAC 30 MG/ML VIAL IVP SCH ×4 (00:04→17:22)
[2018-05-16] MEDS: oxyCODONE 5 MG TABLET PO PRN ×3 (03:46→14:48)
[2018-05-16] MEDS: SIMETHICONE CHEW 80 MG TABLET PO SCH ×2 (05:53→14:44)
[2018-05-16 06:00] LABS: BASOPHILS # (AUTO) 0.1 10^3/uL (0.0-0.1); BASOPHILS % (AUTO) 0.5 %; HGB - HEMOGLOBIN 13.4 g/dL (12.0-16.0); LYMPHOCYTES # (AUTO) 1.4 10^3/uL (1.5-3.5); LYMPHOCYTES % (AUTO) 9.5 %; MEAN CORPUSCULAR HEMOGLOBIN 30.1 pg (27.0-31.0); MEAN CORPUSCULAR HGB CONC 34.7 g/dL (32.0-36.0); MEAN CORPUSCULAR VOLUME 86.7 fL (81.0-99.0); MEAN PLATELET VOLUME 9.3 fL (7.9-10.8); MONOCYTES # (AUTO) 0.8 10^3/uL (0.0-1.0); MONOCYTES % (AUTO) 5.5 %; NEUTROPHILS # (AUTO) 12.8 10^3/uL (1.5-6.6); NEUTROPHILS % (AUTO) 84.5 %; PLT - PLATELET COUNT 306 10^3/uL (130-450); RED BLOOD COUNT 4.46 10^6/uL (4.20-5.40); RED CELL DISTRIBUTION WIDTH 13.3 % (12.0-15.0); WHITE BLOOD COUNT 15.1 x10^3/uL (4.8-10.8)
[2018-05-16] MEDS: LACTATED RINGERS 1,000 ML IV SCH (06:23)
[2018-05-16 06:25] LABS: CALCIUM 8.6 mg/dL (8.5-10.3); CREATININE 0.9 mg/dL (0.4-1.0)
[2018-05-16] MEDS: DOCUSATE SODIUM 100 MG CAPSULE PO SCH (08:04)
[2018-05-16] MEDS ORDERED: SODIUM CHLORIDE FLUSH 0.9% 10 ML SYRINGE ONE (12:11)
--- NOTE | 2018-05-16 16:57 | DISCHARGE SUMMARY ---
"Discharge Summary Admit Date: 05/15/18 Discharge Date: 05/16/18 Discharging Provider: Dr. Debo Hurtado Code Status: Attempt Resuscitation Condition at Discharge: Good Discharge Disposition: 01 Home, Self Care Discharge Facility Name: [facility] - DIAGNOSES Admission Diagnoses: Menorrhagia and Dysmenorrhea Discharge Diagnoses with Status of Each Condition: SIMON now s/p LAVH, bilateral salpingectomies - HPI History of Present Illness: CC: Heavy, painful menses HPI: 28 yo female with heavy and painful menses desiring definitive surgical mgmt. See admission H&P for details. - CONSULTS | PROCEDURES Procedures: LAVH with bilateral salpingectomies and lysis of adhesions - HOSPITAL COURSE Hospital Course: After an uncomplicated surgery, the patient was admitted to the PACU then the ely in stable condition. She did well overnight with toradol and percocet for pain plus IV morphine for breakthrough pain. Her VS were nml/stable. On POD #1, her catheter was removed, and she met her due to void. She was up and ambulating, tolerating a regular diet with a good appetite, and controlling pain with oral pain meds. She felt ready for discharge at that time. - ALLERGIES Allergies/Adverse Reactions: Allergies Allergy/AdvReac Type Severity Reaction Status Date / Time azithromycin Allergy Unknown Verified 05/08/18 14:40 - MEDICATIONS Home Medications: Ambulatory Orders Medication Instructions Recorded Confirmed Buspirone HCl 20 mg PO BID 05/15/18 05/15/18 Home Medications Other | Comments: Has discharge meds at home already: Motrin 800 mg po q 8 hrs prn pain Surfak 240 mg po daily or bid prn constipation Percocet 1-2 tabs po q 4 hrs prn pain - PHYSICAL EXAM AT DISCHARGE General Appearance: positive: No acute distress, Alert Eyes Bilateral: positive: Normal inspection ENT: positive: ENT inspection nml Neck: positive: Nml inspection Respiratory: positive: Breath sounds nml Cardiovascular: positive: Regular rate & rhythm, No murmur, No gallop Peripheral Pulses: negative: 2+ Abdomen: positive: Other (Appropriate tender, nondistended; no guarding; bowel sounds present throughout) Skin: positive: Color nml Extremities: positive: Nml appearance Neurologic/Psychiatric: positive: Oriented x3, Mood/affect nml - LABS Result Diagrams: 05/16/18 05:40 05/16/18 05:40 - FOLLOW UP Follow Up: 05NOV with Dr. Hurtado as previously scheduled - TIME SPENT Time Spent in Discharge (Minutes): 20"
--- NOTE | 2018-05-16 16:59 | Discharge Plan ---
Discharge Plan Disposition: 01 Home, Self Care Condition: Good Diet: Regular Activity Restrictions: Additional Comments (No heavy lifting or exercise for 4 wks. No driving for 2-3 weeks (OK once pain-free off narcotic pain meds). Pelvic rest for 6 wks.) Shower Restrictions: No (Gentle cleansing over incision sites.) Driving Restrictions: Yes (May drive when pain-free off narcotic pain meds) Weight Bearing: Full Weight Instruction Topics: Hysterectomy Laparoscopic Home Additional Instructions or Follow Up instructions: See handouts for LAVH. Patient has discharge medications at home, including motrin 800 mg po q 8 hrs, surfak 240 mg po daily or bid prn constipation, and percocet 1-2 tabs po q 4 hrs prn pain. No Smoking: If you smoke, Please STOP! Call for help. Follow-up with: Debo Hurtado MD [Provider Admit Priv/Credential] -
[2018-05-16 17:25] VITALS: BP 145/87
== END 2018-05-16 17:40 | disposition home or self-care (01) | DRG 743 ==
LOC: MS2 11:31
PROVIDERS: ADMIT Obstetrics & Gynecology; ATTEND Obstetrics & Gynecology
PROC: 0UT7FZZ Resection of Bilateral Fallopian Tubes, Via Natural or Artificial Opening With Percutaneous Endoscopic Assistance (ICD-10-PCS; 2018-05-15)
PROC: 0DNU4ZZ Release Omentum, Percutaneous Endoscopic Approach (ICD-10-PCS; 2018-05-15)
PROC: 0UT9FZZ Resection of Uterus, Via Natural or Artificial Opening With Percutaneous Endoscopic Assistance (ICD-10-PCS; principal; 2018-05-15 12:30)
DX: N92.0 Excessive and frequent menstruation with regular cycle (principal); N94.6 Dysmenorrhea, unspecified; N94.10 Unspecified dyspareunia; F41.9 Anxiety disorder, unspecified; R11.0 Nausea; F32.9 Major depressive disorder, single episode, unspecified; K58.2 Mixed irritable bowel syndrome; Z72.89 Other problems related to lifestyle; Z86.32 Personal history of gestational diabetes; Z82.49 Family history of ischemic heart disease and other diseases of the circulatory system; Z83.3 Family history of diabetes mellitus
CPT/HCPCS: 36415; 80048; 81025; 85025

== ENCOUNTER 2018-12-23 15:33 | Emergency (ER) | payer OTHER ==
--- NOTE | 2018-12-23 15:36 | ED Physician Documentation ---
PD HPI NVD - Stated complaint Stated Complaint: VOMITING - History obtained from History obtained from: Patient - History of Present Illness Timing - onset: Today Timing - duration: Hours Timing - details: Gradual onset (felt dizzy and then vomited several times) Associated symptoms: Dizzy, Other (no diarrhea. Vomited 3 or 4 times). 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 denies: Fever, Chills Eyes: denies: Photophobia Ears: reports: Other (ear fullness). denies: Tinnitus/ringing Nose: reports: Congestion, Sinus pressure / pain. denies: Rhinorrhea / runny nose Throat: reports: Sore throat Cardiac: denies: Chest pain / pressure Respiratory: reports: Cough. denies: Dyspnea GI: reports: Nausea, Vomiting. denies: Abdominal Pain, Abdominal Swelling, Diarrhea, Hematemesis, Bloody / black stool : denies: Dysuria, Frequency, Hesitancy Skin: denies: Rash Musculoskeletal: denies: Neck pain, Joint pain Neurologic: reports: Headache, Other (dizziness). 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, Other Psych: Depression, Anxiety, Panic attacks - Past Surgical History Past Surgical History: Yes General: Cholecystectomy /YARDER ENGINEER: section - Present Medications Home Medications: Ambulatory Orders Medication Instructions Recorded Confirmed Ondansetron Odt [Zofran] 4 mg TL Q6H PRN #10 tablet 12/23/18 RX: Meclizine HCl 12.5 mg PO BID PRN #15 tablet 12/23/18 Sertraline [Zoloft] 25 mg PO DAILY 12/23/18 12/23/18 - Allergies Allergies/Adverse Reactions: Allergies Allergy/AdvReac Type Severity Reaction Status Date / Time azithromycin Allergy Unknown Verified 12/23/18 15:44 - Social History Does the pt smoke?: No Smoking Status: Never smoker Does the pt drink ETOH?: No Does the pt have substance abuse?: No - Immunizations Immunizations are current?: Yes - POLST Patient has POLST: No PD ED PE NORMAL - Vitals Vital signs reviewed: Yes - General General: Alert and oriented X 3 - HEENT HEENT: Atraumatic, PERRL, EOMI, Ears normal, Moist mucous membranes - Neck Neck: Supple, no meningeal sign, No JVD - Cardiac Cardiac: RRR, No murmur - Respiratory Respiratory: No respiratory distress - Abdomen Abdomen: Soft, Non tender, Non distended - Female Female : Deferred - Rectal Rectal: Deferred - Derm Derm: Normal color, Warm and dry, No rash - Extremities Extremities: No deformity - Neuro Neuro: Alert and oriented X 3, tumbler plater 2-12 intact, No motor deficit, No sensory deficit, Normal speech Eye Opening: Spontaneous Motor: Obeys Commands Verbal: Oriented GCS Score: 15 - Psych Psych: Normal mood, Normal affect PD ED PE EXPANDED - HEENT HEENT: Right maxillary sinus TTP, Left maxillary sinus TTP, Nasal congestion, Moist mucous membranes, Pharyngeal erythema. No: Swollen tonsils, Tonsillar exudate, Soft palate petecchiae - Eyes Eyes: Other (bilateral horizontal nystagmus ) - Neck Neck: Supple w/out meningeal sx. No: Stiff neck, No tenderness, Limited ROM - Neuro Neuro: Alert and Oriented X 3, Confused, Normal motor, Normal Sensation, Normal Speech, Normal reflexes, CNII-XII intact, PERRL, Nystagmus, Cerebellar nl, Normal gait, Normal finger nose, Normal speech. No: Weakness, Dyscongugate gaze Results - Vitals Vitals: Vital Signs - 24 hr 12/23/18 12/23/18 12/23/18 15:38 16:46 17:17 Temperature 37.0 C 37.2 C Heart Rate 66 63 61 Respiratory 17 15 16 Rate Blood Pressure 139/93 H 145/91 H 116/69 O2 Saturation 97 99 99 12/23/18 18:19 Temperature 37.8 C H Heart Rate 67 Respiratory 15 Rate Blood Pressure 124/70 O2 Saturation 100 Oxygen O2 Source Room air PD MEDICAL DECISION MAKING - ED course Complexity details: re-evaluated patient, considered differential, d/w patient ED course: DDx - gastroenteritis, sinusitis, peripheral vertigo, central vertigo, URI, 28 y/o F with nausea, vomiting today multiple times after feeling dizzy. States she has had a sinus infection for 1-2 days at the same time as the nausea and dizziness started. She reports some abdominal pain bilaterally that she desc ribes as soreness since vomiting but no diarrhea. Abdomen is nontender. Exam c/w sinus infection/congestion, pt does have nystagmus but no neuro findings and normal gait and cerebellar testing. Suspect labyrinthitis causing peripheral vertigo. Her symptoms resolved here with toradol for pain, meclizine and zofran. SHe is tolerating PO and stable for outpt f/u. Given return precautions if recurrent vomiting, pain or new concerning symptoms Departure - Departure Disposition: 01 Home, Self Care Clinical Impression: Vertigo Sinusitis Qualifiers: Sinusitis location: ethmoidal Chronicity: acute Recurrence: non-recurrent Qualified Code(s): J01.20 - Acute ethmoidal sinusitis, unspecified Labyrinthine dysfunction Qualifiers: Laterality: unspecified laterality Qualified Code(s): H83.2X9 - Labyrinthine dysfunction, unspecified ear Condition: Stable Record reviewed to determine appropriate education?: Yes Instructions: ED Vertigo Unspecified Follow-Up: JONATHON HUITRON [Primary Care Provider] - As Needed Prescriptions: RX: Meclizine HCl 12.5 mg PO BID PRN #15 tablet PRN Reason: Dizziness Ondansetron Odt [Zofran] 4 mg TL Q6H PRN #10 tablet PRN Reason: Nausea / Vomiting Comments: Your evaluation today was consistent with nausea and vomiting due to peripheral vertigo from your sinus infection. You were given nausea medicine (zofran) and vertigo medicine called antivert (meclizine). You can continue these at home as needed and take ibuprofen 600mg every 8 hours as needed for pain. Drink plenty of fluids. Return to the ED if new or concerning symptoms or worsening. Discharge Date/Time: 12/23/18 18:43
[2018-12-23] MEDS ORDERED: MECLIZINE 12.5 MG TABLET PO STA (16:16)
[2018-12-23] MEDS ORDERED: ONDANSETRON ODT 4 MG TABLET TL STA (16:17)
[2018-12-23] MEDS ORDERED: KETOROLAC 30 MG/ML VIAL IVP STA (17:32)
[2018-12-23] MEDS ORDERED: KETOROLAC 15 MG/ML VIAL IM STA (17:34)
[2018-12-23 18:20] VITALS: BP 124/70
== END 2018-12-23 18:43 | disposition home or self-care (01) ==
LOC: ED 15:33
DX: R42 Dizziness and giddiness (principal); J01.20 Acute ethmoidal sinusitis, unspecified; H83.2X9 Labyrinthine dysfunction, unspecified ear; H55.09 Other forms of nystagmus
CPT/HCPCS: 96372; 99284; A9270

== ENCOUNTER 2019-02-05 17:34 | Outpatient (CLI) | payer OTHER ==
[2019-02-05] MEDS ORDERED: GADOBUTROL 10 MMOL/10 ML VIAL ONE (17:46)
[2019-02-05] MEDS ORDERED: GADOBUTROL 10 MMOL/10 ML VIAL IVP ONE (18:01)
--- NOTE | 2019-02-06 10:00 | MRI Report ---
Reason: DIZZINESS AND GIDDINESS Procedure Date: 02/05/2019 Accession Number: [id number] / [id number] Procedure: MRI - Brain W/WO CPT Code: FULL RESULT: EXAM: MRI BRAIN WITHOUT AND WITH CONTRAST EXAM DATE: 02/05/2019 06:58 PM. CLINICAL HISTORY: Dizziness and giddiness. Concern for MS. COMPARISON: None. TECHNIQUE: Multiplanar, multisequence T1-weighted and fluid-sensitive MR sequences of the brain were performed. Sequences optimized for routine evaluation. Other: None. IV Contrast: 10 mL Gadavist. FINDINGS: Brain Volume: Normal for age. Parenchyma: No acute hemorrhage, mass, or infarct. There is an oval 2.5 mm punctate cystic-appearing focus superolateral to the atrium of the left lateral ventricle within parietal white matter, which may represent a perivascular space. Otherwise, Normal isaac matter and white matter signal intensity is identified. The corpus callosum is normal. No abnormal enhancement. Ventricles/Cisterns: The ventricles, sulci, and cisterns are unremarkable. No abnormal extraaxial hemorrhage. Arcuate CSF signal intensity is seen posterior to the cerebellar vermis. This extends from below the tentorium through to the posterior aspect of the foramen magnum. This measures up to approximately 11 mm in thickness. Mild effacement of the posterior cerebellar vermis and posteromedial cerebellar hemispheres is seen without parenchymal signal abnormality. This may represent arachnoid cyst rather than hemant cisterna magna. Orbits: Symmetric and unremarkable. Sella Turcica: The pituitary gland, cavernous sinuses, suprasellar cistern and optic chiasm are unremarkable. IAC: Symmetric and unremarkable. Vasculature: Normal signal flow void is seen in the major arterial structures at the skull base. The dural sinuses are patent and enhance normally. Sinuses: No acute sinus disease. Bones: No focal pathologic appearing marrow signal changes. Other: None. IMPRESSION: 1. Negative MRI of the brain. No evidence to suggest demyelination/multiple sclerosis. No acute abnormality. No infarct, mass, hemorrhage, or abnormal enhancement. 2. Arcuate CSF focus posterior to the cerebellar vermis as noted above. This likely represents a small arachnoid cyst. RADIA
== END 2019-02-05 17:35 | disposition home or self-care (01) ==
LOC: DI 17:34
PROVIDERS: ATTEND Family Medicine
DX: R42 Dizziness and giddiness (principal)
CPT/HCPCS: 70553; A9585

== ENCOUNTER 2019-06-06 17:22 | Emergency (ER) | payer OTHER ==
[2019-06-06] MEDS ORDERED: HYDROmorphone 1 MG/ML CARPUJECT IVP STA (17:54)
[2019-06-06] MEDS ORDERED: ONDANSETRON 4 MG/2 ML VIAL IVP STA ×2 (17:54→21:08)
--- NOTE | 2019-06-06 17:56 | ED Physician Documentation ---
PD HPI HEENT - Stated complaint Stated Complaint: FACIAL SWELLING & JAW PX - Chief complaint Chief Complaint: Heent - History obtained from History obtained from: Patient - History of Present Illness Timing - onset: Other (Fairly suddenly today she developed right-sided facial swelling and left maxillary swelling and severe pain. She is been congested but can breathe okay. No known fevers but she has had chills.) Review of Systems Constitutional: reports: Chills. 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, Other : Other Psych: Depression, Anxiety, Panic attacks - Past Surgical History Past Surgical History: Yes General: Cholecystectomy /NUCLEAR MEDICINE TECHNICIAN: section - Present Medications Home Medications: Ambulatory Orders Medication Instructions Recorded Confirmed Sertraline [Zoloft] 25 mg PO DAILY 12/23/18 12/23/18 Cephalexin [Keflex] 500 mg PO Q6H #28 capsule 06/06/19 Gabapentin 100 mg PO 06/06/19 Ondansetron Odt [Zofran] 4 mg TL Q6H PRN #10 tablet 06/06/19 Oxycodone HCl/Acetaminophen 1 - 2 each PO Q6H PRN #10 tablet 06/06/19 [Percocet 5-325 mg Tablet] Propranolol [Inderal] 10 mg PO BID 06/06/19 06/06/19 cloNIDine [Catapres] 0.1 mg PO BID 06/06/19 06/06/19 - Allergies Allergies/Adverse Reactions: Allergies Allergy/AdvReac Type Severity Reaction Status Date / Time azithromycin Allergy Unknown Verified 06/06/19 17:27 - Social History Does the pt smoke?: No Smoking Status: Never smoker Does the pt drink ETOH?: No Does the pt have substance abuse?: No - Immunizations Immunizations are current?: Yes - POLST Patient has POLST: No PD ED PE NORMAL - Vitals Vital signs reviewed: Yes - General General: Alert and oriented X 3 (She is tearful) - HEENT HEENT: Ears normal, Other (Tender over the left maxillary sinus, she points there is an area of swelling but it is really not appreciable on examination. She is quite tender over the submandibular gland on the right. A little bit of swelling there. No sublingual edema or trismus, no glossal elevation. [place] teeth are impacted but I do not see an obvious dental infection.) - Neck Neck: Supple, no meningeal sign, No bony TTP, No bruit - Neuro Neuro: Alert and oriented X 3, Normal speech Results - Vitals Vitals: Vital Signs - 24 hr 06/06/19 06/06/19 06/06/19 17:24 20:17 22:03 Temperature 37.4 C 37.2 C Heart Rate 79 81 83 Respiratory 18 16 18 Rate Blood Pressure 142/91 H 130/81 H 119/70 O2 Saturation 99 99 100 Oxygen O2 Source Room air - Labs Labs: Laboratory Tests 06/06/19 06/06/19 18:00 18:00 WBC 16.1 H RBC 4.65 Hgb 14.5 Hct 42.2 MCV 90.8 MCH 31.2 H MCHC 34.4 RDW 12.5 Plt Count 358 MPV 10.9 H Neut # (Auto) 12.8 H Lymph # (Auto) 1.9 [place] # (Auto) 1.0 Eos # (Auto) 0.2 Baso # (Auto) 0.1 Absolute Nucleated RBC 0.00 Nucleated RBC % 0.0 Sodium 137 Potassium 3.9 Chloride 103 Carbon Dioxide 24 Anion Gap 10.0 BUN 13 Creatinine 1.0 Estimated GFR (MDRD) 66 L Glucose 99 Calcium 9.7 - Rads (name of study) CT Face Radiology: EMP read contemporaneously (Left facial cellulitis with adenopathy co ncerning for mono) Procedures - General procedure General procedure: She was very difficult for IV access, the nurses he tried and failed. Ice tried a couple of times and eventually succeeded with a long 22-gauge IV in the left deep brachial vein after ChloraPrep with real-time ultrasound guidance. PD MEDICAL DECISION MAKING - ED course ED course: 29-year-old woman with a mild case of left facial cellulitis. Also Some submandibular swelling, I thought it might be a sialolith but CT imaging suggest that is just adenopathy. She did not want a repeat blood draw for mono and it would not change the outcome. She is placed on Ancef for the facial cellulitis and signs and symptoms necessitating an urgent follow-up or return were discussed. Departure - Departure Disposition: 01 Home, Self Care Clinical Impression: Facial cellulitis Condition: Good Record reviewed to determine appropriate education?: Yes Instructions: ED Cellulitis Facial Prescriptions: Cephalexin [Keflex] 500 mg PO Q6H #28 capsule Ondansetron Odt [Zofran] 4 mg TL Q6H PRN #10 tablet PRN Reason: Nausea / Vomiting Oxycodone HCl/Acetaminophen [Percocet 5-325 mg Tablet] 1 - 2 each PO Q6H PRN #10 tablet PRN Reason: pain Comments: Call your doctor to arrange a follow-up appointment, make the next available appointment. In the interim, return anytime if worse or if new symptoms develop. Do not drink or drive while taking narcotic pain medication. Note that many narcotic pain relievers also contain Tylenol/acetaminophen. Please ensure that your total dose of acetaminophen from all sources does not exceed 3 g (3000 mg) per day. You may get constipated while on this medication. Take a stool softener such as Colace twice a day while you are on it. Also add an [id number] laxative such as senna or MiraLAX on any day that you do not have a bowel movement. If you received a narcotic pain medication or sedative while in the emergency department, do not drive for the next 24 hours. Discharge Date/Time: 06/06/19 22:12
[2019-06-06 18:18] LABS: BASOPHILS # (AUTO) 0.1 10^3/uL (0.0-0.1); BASOPHILS % (AUTO) 0.6 %; EOSINOPHILS # (AUTO) 0.2 10^3/uL (0.0-0.7); EOSINOPHILS % (AUTO) 0.9 %; HGB - HEMOGLOBIN 14.5 g/dL (12.0-16.0); LYMPHOCYTES # (AUTO) 1.9 10^3/uL (1.5-3.5); LYMPHOCYTES % (AUTO) 11.5 %; MEAN CORPUSCULAR HEMOGLOBIN 31.2 pg (27.0-31.0); MEAN CORPUSCULAR HGB CONC 34.4 g/dL (32.0-36.0); MEAN CORPUSCULAR VOLUME 90.8 fL (81.0-99.0); MEAN PLATELET VOLUME 10.9 fL (7.9-10.8); MONOCYTES % (AUTO) 6.2 %; NEUTROPHILS # (AUTO) 12.8 10^3/uL (1.5-6.6); NEUTROPHILS % (AUTO) 79.5 %; PLT - PLATELET COUNT 358 10^3/uL (130-450); RED BLOOD COUNT 4.65 10^6/uL (4.20-5.40); RED CELL DISTRIBUTION WIDTH 12.5 % (12.0-15.0); WHITE BLOOD COUNT 16.1 x10^3/uL (4.8-10.8)
[2019-06-06 18:21] LABS: CALCIUM 9.7 mg/dL (8.5-10.3)
[2019-06-06] MEDS ORDERED: IOVERSOL 320 100 ML VIAL IVP ONE ×2 (18:35→20:16)
--- NOTE | 2019-06-06 20:59 | CT Report ---
Reason: IV contrast, R mandible swelling, L face swelling Procedure Date: 06/06/2019 Accession Number: [id number] / [id number] Procedure: CT - MAXILLOFACIAL W CPT Code: Final Report FULL RESULT: EXAM: CT MAXILLOFACIAL WITH CONTRAST EXAM DATE: 06/06/2019 08:13 PM. CLINICAL HISTORY: 28-year-old female. R mandible swelling, L face swelling. COMPARISONS: None. TECHNIQUE: Thin-section axial images were acquired of the face after administration of intravenous contrast. Post-processing: Coronal and sagittal reformats. Other: None. IV contrast: . In accordance with CT protocol optimization, one or more of the following dose reduction techniques were utilized for this exam: automated exposure control, adjustment of mA and/or KV based on patient size, or use of iterative reconstructive technique. FINDINGS: Soft Tissue: Mild edema and inflammatory change involving the left face (for example series 5 image 112), as well as also along the right mandible (for example series 5 image 41). No soft tissue abscess formation. Enlarged upper cervical lymph nodes bilaterally. The tonsillar pillars bilaterally appear prominent. The infratemporal fossa and parapharyngeal spaces are unremarkable. Orbits: Symmetric and unremarkable. Bones: No fracture or bone lesion. Temporomandibular Joints: The temporomandibular joints are symmetric and normally located. Sinuses: Normal. No mucosal thickening or fluid levels. Glands: The parotid and submandibular glands are unremarkable. Other: None. IMPRESSION: 1. Mild edema and inflammatory change involving the left face (for example series 5 image 112), as well as also along the right mandible (for example series 5 image 41). This may represent soft tissue cellulitis. No soft tissue abscess formation. 2. Enlarged upper cervical lymph nodes bilaterally, nonspecific but likely reactive to infection/inflammation. The tonsillar pillars bilaterally appear also prominent. This combination suggests possibility of infectious mononucleosis. RADIA
[2019-06-06] MEDS ORDERED: oxyCODONE/ACET 5/325 Prepack 4 PO STA (21:08)
[2019-06-06] MEDS ORDERED: ceFAZolin 2 GM in SODIUM CHLORIDE 0.9% 100ML 100 ML IV STA (21:08)
[2019-06-06] MEDS ORDERED: ONDANSETRON ODT 4 MG Prepack 2 TL STA (21:08)
[2019-06-06] MEDS ORDERED: ceFAZolin 1 GM VIAL ONE (21:23)
[2019-06-06 22:04] VITALS: BP 119/70
[2019-06-06] MEDS ORDERED: PROMETHAZINE 25 MG TABLET PO STA (22:05)
== END 2019-06-06 22:12 | disposition home or self-care (01) ==
LOC: ED 17:22
DX: L03.211 Cellulitis of face (principal); R59.0 Localized enlarged lymph nodes; K01.1 Impacted teeth
CPT/HCPCS: 36415; 70487; 80048; 85025; 96365; 96375; 96376; 99283; 99284; J1170; Q0169; Q9967; 86308

== ENCOUNTER 2019-09-07 12:13 | Outpatient (CLI) | payer OTHER ==
[2019-09-07] MEDS ORDERED: GADOBUTROL 10 MMOL/10 ML VIAL ONE (12:29)
[2019-09-07] MEDS ORDERED: GADOBUTROL 10 MMOL/10 ML VIAL IVP ONE (13:45)
--- NOTE | 2019-09-07 17:06 | MRI Report ---
Reason: DORSALGLA Procedure Date: 09/07/2019 Accession Number: [id number] / [id number] Procedure: MRI - Lumbar Spine W/WO CPT Code: Final Report FULL RESULT: EXAM: MRI LUMBAR SPINE WITHOUT AND WITH CONTRAST EXAM DATE: 09/07/2019 02:27 PM. CLINICAL HISTORY: Dorsalgia. Low back pain radiating from the right buttock into the right groin for 6 months. COMPARISONS: None. TECHNIQUE: Multiplanar, multisequence T1-weighted and fluid-sensitive sequences of the lumbar spine from T12 to S1 before and after administration of intravenous contrast. Other: None. IV contrast: 10 cc Gadavist. FINDINGS: Neurologic Structures: The conus terminates at L1. The conus medullaris and cauda equina are unremarkable. Alignment: No scoliosis or spondylolisthesis. Bone Marrow: Five [id number] lumbar vertebral bodies are assumed. No gross fractures or bone lesions. No bone marrow replacement or abnormal enhancement. Disk Levels/Facets: T12-L1: Unremarkable. L1-L2: Mild disk height loss and dehydration. Slight annular disk bulge. No stenosis. L2-L3: Mild disk height loss and dehydration. Slight annular disk bulge. No stenosis. L3-L4: Mild disk height loss and dehydration. Annular disk bulge. Minimal effacement of the thecal sac. Mild right foraminal narrowing. L4-L5: Mild disk height loss and dehydration. Annular disk bulge with broad-based left foraminal protrusion and mild facet arthropathy. Mild left foraminal stenosis. Mild right foraminal narrowing. L5-S1: Disk height loss and dehydration. Annular disk bulge with broad-based central protrusion with annular fissure. Mild effacement of the thecal sac. Mild facet arthropathy. Mild left greater than right foraminal narrowing. Spinal Canal: No enhancing masses within the spinal canal. No epidural abscess. Musculature: Normal. No edema, abnormal enhancement, or fatty atrophy. Other: Deformity and defects within both kidneys which may reflect previous areas of scarring or infarct or less likely previous partial resections. IMPRESSION: 1. Mild multilevel lumbar degenerative disk and facet arthropathy. 2. L4-L5 mild left foraminal stenosis. 3. No additional significant canal or foraminal stenosis. Comment: The following findings are so common in adults without low back pain that while we report their presence, they must be interpreted with caution and in the context of the clinical situation. (Reference Lillie et al, Spine 2001) Prevalence of findings in patients without low back pain: Disk degeneration (any evidence): 92% Disk desiccation/T2 signal loss: 83% Disk height loss: 56% Disk bulge: 64% Disk protrusion: 32% Annular tear/high intensity zone: 38% RADIA
--- NOTE | 2019-09-07 17:06 | MRI Report ---
Reason: DORSALGLA Procedure Date: 09/07/2019 Accession Number: [id number] / [id number] Procedure: MRI - Thoracic Spine W/WO CPT Code: Final Report FULL RESULT: EXAM: MRI THORACIC SPINE WITHOUT AND WITH CONTRAST EXAM DATE: 09/07/2019 02:20 PM. CLINICAL HISTORY: Dorsalgia. COMPARISONS: None. TECHNIQUE: Multiplanar, multisequence T1-weighted and fluid-sensitive sequences of the thoracic spine from C7 to L1 before and after administration of intravenous contrast. Other: None. IV contrast: 10 mL Gadavist. FINDINGS: Spinal Cord: No signal abnormality in the visualized spinal cord. Alignment: Normal alignment. No spondylolisthesis. Bone Marrow: No fracture. No destructive bone lesion. No bone marrow edema or abnormal enhancement. Disk Levels/Facets: C7-T1: Unremarkable. T1-T2: Minimal disk bulge. No significant stenosis. T2-T3: Annular disk bulge. Minimal central canal stenosis. No significant foraminal stenosis. T3-T4: Small annular disk bulge. Minimal effacement of the thecal sac. No significant stenosis. T4-T5: Small annular disk bulge. Minimal effacement of the thecal sac. No significant stenosis. T5-T6: Small annular disk bulge. Mild effacement of the thecal sac. No foraminal stenosis. T6-T7: Unremarkable. T7-T8: Annular disk bulge with broad-based right paracentral disk protrusion contacting the anterior margin of the thoracic spinal cord. Mild central canal stenosis. No foraminal stenosis. T8-T9: Minimal disk bulge. No stenosis. T9-T10: Minimal disk bulge. No stenosis. T10-T11: Minimal disk bulge. No stenosis. T11-T12: Mild annular disk bulge. Mild effacement of the thecal sac. No significant stenosis. T12-L1: Unremarkable. Spinal Canal: No enhancing masses within the spinal canal. No epidural abscess. Musculature: Normal. No edema, enhancement, or fatty atrophy. Other: Deformity and some defects within the right greater than left kidney consistent with areas of scarring or previous infarct versus partial resections. IMPRESSION: 1. Multilevel thoracic degenerative disk and facet arthropathy. 2. T7-T8 right paracentral disk protrusion resulting in mild central canal stenosis. 3. Additional small disk bulges without significant canal or foraminal stenosis. RADIA
== END 2019-09-07 12:14 | disposition home or self-care (01) ==
LOC: DI 12:13
PROVIDERS: ATTEND Internal Medicine
DX: M51.24 Other intervertebral disc displacement, thoracic region (principal); M51.34 Other intervertebral disc degeneration, thoracic region; M48.04 Spinal stenosis, thoracic region; M47.814 Spondylosis without myelopathy or radiculopathy, thoracic region; M51.36 Other intervertebral disc degeneration, lumbar region; M48.061 Spinal stenosis, lumbar region without neurogenic claudication; M47.816 Spondylosis without myelopathy or radiculopathy, lumbar region; M47.817 Spondylosis without myelopathy or radiculopathy, lumbosacral region; M51.37 Other intervertebral disc degeneration, lumbosacral region; M48.07 Spinal stenosis, lumbosacral region; M51.26 Other intervertebral disc displacement, lumbar region
CPT/HCPCS: 72157; 72158; A9585

== ENCOUNTER 2022-07-27 12:46 | Outpatient (CLI) | payer OTHER ==
--- NOTE | 2022-07-27 14:55 | MRI Report ---
PROCEDURE: BRAIN WO INDICATIONS: MIGRAINE TECHNIQUE: Noncontrast axial T1 spin echo, axial T2 fast spin echo, sagittal and axial FLAIR, coronal T2 fast sp in echo, axial gradient echo, axial diffusion and ADC through the brain. COMPARISON: 02/06/2019 FINDINGS: Image quality: Excellent. CSF Spaces: Basal cisterns are patent. There is again seen an arachnoid cyst along the posterior as pect of the posterior fossa. Ventricles are normal in size and shape. Brain: No intracranial masses or hemorrhage. Zuniga/white matter interface is normal. Brainstem appe ars normal. Diffusion-weighted images demonstrate no acute ischemic insult. No chronic ischemic ins ults. Normal intravascular flow voids are present. Skull and face: Calvarium has normal marrow signal. Orbits appear normal. Sinuses: Moderate mucosal thickening is seen within the inferior left maxillary sinus. Minimal mucosa l thickening is seen elsewhere within the paranasal sinuses. No significant abnormal fluid can be see n within the mastoid air cells. IMPRESSION: No significant intracranial abnormality is seen. Similar to prior. Additional findings: Posterior fossa arachnoid cyst, as before Reviewed by: Jairo Rogers MD on 07/27/2022 1:54 PM [place] Approved by: Jairo Rogers MD on 07/27/2022 1:54 PM [facility] Station ID: [id number]
== END 2022-07-27 12:47 | disposition home or self-care (01) ==
LOC: DI 12:46
PROVIDERS: ATTEND Physician Assistant
DX: G43.109 Migraine with aura, not intractable, without status migrainosus (principal)

== ENCOUNTER 2023-08-28 10:30 | Outpatient (CLI) | payer OTHER | END 2023-08-28 10:45 | disposition home or self-care (01) | LOC: LAB.N 10:30 | PROVIDERS: ATTEND Nurse Practitioner | DX: R07.0 Pain in throat (principal); R30.0 Dysuria | CPT/HCPCS: 87070; 87086 ==